=== PATIENT | male | born 1975 | race Two or more races ===

== ENCOUNTER → 2018-09-29 | Day surgery (SDC) | payer MEDICAID ==
[2018-09-27 11:15] LABS: Urine WBC None Seen /hpf (0 - 3)
[2018-09-27 11:25] LABS: Basophils # (auto) 0 uL; Basophils % (auto) 0.4 % (0.0-2.0); Eosinophils # (auto) 0.3 uL; Eosinophils % (auto) 4.5 % (0.0-7.0); Hematocrit 41.6 % (41.0-53.0); Lymphocytes # (auto) 2.9 uL; Mean Corpuscular Hemoglobin 27.4 pg (28.0-32.0); Mean Corpuscular Hgb Conc. 33.7 g/dL (32.0-36.0); Mean Corpuscular Volume 81.4 fL (80.0-100.0); Monocytes # (auto) 0.6 uL; Monocytes % (auto) 8.4 % (0.0-12.0); Neutrophils # (auto) 3.1 uL; Neutrophils % (auto) 44.7 % (37.0-80.0); Nucleated Red Blood Cells % 0.1 %; Platelet Count (auto) 240 10^3/uL (140-450); Red Blood Cells 5.11 10^6/uL (4.5-5.90); Red Cell Distribution Width 16.6 % (11.8-14.3)
[2018-09-27 11:26] LABS: Urine Bacteria NONE SEEN /hpf (None Seen); Urine Blood 2+ /uL (Negative); Urine Specific Gravity 1.015 (1.001-1.035)
[2018-09-27 11:36] LABS: INR 0.87 (0.9-1.15); Partial Thromboplastin Time 23.8 sec (23.78-33.04); Prothrombin Time 9.4 sec (9.27-12.13)
[2018-09-27 11:42] LABS: Calcium 8.9 mg/dL (8.5-10.1); Potassium 4.1 mmol/L (3.5-5.1)
[2018-09-27 11:48] LABS: Albumin 3.4 g/dL (3.4-5.0); BUN/Creatinine Ratio 26.4; Bilirubin, Total 0.2 mg/dL (0.2-1.0); Total Protein 8.9 g/dL (6.4-8.2)
[~2018-09-29] VITALS: Ht 167.6 cm; Wt 104.3 kg
[~2018-09-29] MED LIST: ALBUAER3 IN; ALLO300T2 PO; AMLO10TA12 PO; BUPIVACAINE HCL 50 ML ONE; GLYCOPYRROLATE 0.2 MG/ML 1ML VIAL ONE; HYDROmorphone HCL 2 MG/ML VL IV PRN; LIDOCAINE 1% HCL (LOCAL ANESTH.) INJ 20ML MDV ONE; LIDOCAINE 1% INJ PF 5ML AMP ONE; LISI40TA PO; METO-169 PO; METOCLOPRAMIDE HCL 5MG/ml INJ 2ml VIAL ONE; MIDAZOLAM HCL 1MG/1ML-2 ML VIAL ONE; NALOXONE HCL 0.4 MG/ML VIAL IV PRN; ONDANSETRON HCL 4 MG/2 ML VIAL IV ONE; PHENYLEPHRINE HCL 10 MG/ML VL ONE; PROPOFOL 10 MG/ML 20 ML IV ONE; SIMV-8 PO; SODIUM CHLORIDE LOCK 10 ML ONE; SUCCINYLCHOLINE CHLORIDE 20 MG/ML 10ML VIAL IV ONE; ceFAZolin 1GM/50ML 100 ML IV ONE; diphenhdrAMINE HCL 50 MG/1 ML VL ONE; fentaNYL CITRATE 100 MCG/2 ML VL ONE; hydrALAZINE HCL 20 MG/ML VL IV PRN; hydrALAZINE HCL 20 MG/ML VL ONE
[2018-09-29 16:58] VITALS: BP 140/93
== END | disposition home or self-care (01) ==
LOC: SUR 11:14
PROVIDERS: ATTEND Podiatrist
DX: S92.322A Displaced fracture of second metatarsal bone, left foot, initial encounter for closed fracture (principal); J45.909 Unspecified asthma, uncomplicated; E66.9 Obesity, unspecified; Z90.49 Acquired absence of other specified parts of digestive tract; Z98.890 Other specified postprocedural states; Z68.37 Body mass index [BMI] 37.0-37.9, adult; X58.XXXA Exposure to other specified factors, initial encounter; Y93.89 Activity, other specified; Y92.89 Other specified places as the place of occurrence of the external cause; Y99.8 Other external cause status
CPT/HCPCS: 28485; J0360; J1200; J2370; J2765; J3010; 36415; 73620; 76001; 80053; 81001; 85025; 85610; 85730; J0330; J0690; J2001; J2250; J2704; J3490